=== PATIENT | male | born 1960 | race Caucasian/White ===

== ENCOUNTER 2016-04-25 13:40 | Emergency (ER) | payer OTHER ==
[~2016-04-25] VITALS: Ht 177.8 cm; Wt 100.0 kg
[2016-04-25 13:42] VITALS: BP 131/74; PULSE 83; RESP 12; TEMP 97.9; O2SAT 97
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
[2016-04-25] MEDS ORDERED: ROBA750T PO (15:22)
[2016-08-20] MEDS ORDERED: MELO7.5T4 PO (10:40)
[2016-08-20] MEDS ORDERED: TRAM50TA PO (10:40)
== END 2016-04-25 15:33 | disposition home or self-care (01) ==
LOC: NEPB 13:40
DX: S16.1XXA Strain of muscle, fascia and tendon at neck level, initial encounter (principal); M25.562 Pain in left knee; R20.0 Anesthesia of skin; V89.2XXA Person injured in unspecified motor-vehicle accident, traffic, initial encounter; Y92.238 Other place in hospital as the place of occurrence of the external cause; Y99.8 Other external cause status
CPT/HCPCS: 72125; 73564